=== PATIENT | male | born 1970 | race Caucasian/White ===

== ENCOUNTER → 2021-09-05 | Outpatient (CLI) | payer MEDICARE, MEDICAID ==
[~2021-09-05] MED LIST: PROHANCE 279.3MG/ML 15ML VIAL As Ordered ONE
== END ==
LOC: M RAD 12:31
PROVIDERS: ATTEND Neurological Surgery
DX: D49.2 Neoplasm of unspecified behavior of bone, soft tissue, and skin (principal)
CPT/HCPCS: 72158; A9576